=== PATIENT | male | born 1950 | race Caucasian/White ===

== ENCOUNTER 2017-08-31 10:33 | Outpatient (CLI) | payer OTHER ==
[~2017-08-31 10:33] MED LIST: COZAAR25 MG PO
== END 2017-08-31 11:46 | disposition home or self-care (01) ==
LOC: TOM 10:33
DX: D50.9 Iron deficiency anemia, unspecified (principal); R19.00 Intra-abdominal and pelvic swelling, mass and lump, unspecified site; R10.84 Generalized abdominal pain
CPT/HCPCS: 74177; Q9965

== ENCOUNTER → 2018-02-17 14:59 | Outpatient (CLI) | payer OTHER | END | disposition home or self-care (01) | LOC: LAB 14:59 | DX: I10 Essential (primary) hypertension (principal); E11.9 Type 2 diabetes mellitus without complications; N30.00 Acute cystitis without hematuria; N20.0 Calculus of kidney; N64.3 Galactorrhea not associated with childbirth ==

== ENCOUNTER 2018-02-19 10:11 | Outpatient (CLI) | payer OTHER | END 2018-02-19 10:20 | disposition home or self-care (01) | LOC: TOM 10:11 | DX: N20.1 Calculus of ureter (principal) ==